=== PATIENT | male | born 1940 | race Caucasian/White ===

== ENCOUNTER 2019-10-05 10:25 | Emergency (ER) | payer BC, OTHER ==
[~2019-10-05] VITALS: Ht 182.9 cm; Wt 78.0 kg
[2019-10-05] MEDS ORDERED: DILTIAZEM HCL 5MG/ML 10ML VIAL IV ONE ×2 (11:05→19:24)
[2019-10-05] MEDS ORDERED: ASPIRIN 81MG TABLET PO ONE (11:15)
[2019-10-05] MEDS ORDERED: DILTIAZEM HCL 60MG TABLET PO ONE ×2 (11:15→21:30)
[2019-10-05] MEDS ORDERED: DILTIAZEM HCL 5MG/ML 5ML VIAL IV ONE ×3 (11:15→21:30)
[2019-10-05 11:17] LABS: BASOPHILS % 1.5 % (0.0-2.0); EOSINOPHILS % 4.5 % (0.0-5.0); HEMATOCRIT. 42.1 % (42.0-52.0); HEMOGLOBIN. 14.2 g/dL (14.0-18.0); LYMPHOCYTES % 27.1 % (20.0-50.0); MEAN CORPUSCULAR HEMOGLOBIN 30.8 pg (28.0-32.0); MEAN CORPUSCULAR VOLUME 91.3 fL (80.0-94.0); MEAN PLATELET VOLUME 8.4 fl (7.4-10.4); MONOCYTES % 11.2 % (2.0-8.0); NEUTROPHILS % 55.7 % (40.0-76.0); PLATELET 210 x1000/uL (130-400); RED BLOOD CELL COUNT 4.62 mill/uL (4.7-6.1); RED CELL DISTRIBUTION WIDTH 13.2 % (11.6-14.6)
[2019-10-05 11:26] LABS: CHLORIDE 105 mEq/L (98-107)
[2019-10-05 11:36] LABS: PARTIAL THROMBOPLASTIN TIME 28.6 sec (23.4-31.0); PROTHROMBIN TIME 10.5 sec (9.6-11.0)
[2019-10-05] MEDS ORDERED: NITROGLYCERIN OINT 1GM/INCH UDPKT TD ONE (13:00)
[2019-10-05] MEDS ORDERED: FUROSEMIDE 40MG/4ML VIAL IV ONE (13:00)
[2019-10-05] MEDS ORDERED: DILTIAZEM HCL 5MG/ML 10ML VIAL IV NR (19:30)
[2019-10-05 22:07] VITALS: BP 119/59
== END 2019-10-05 22:37 | disposition short-term general hospital (02) ==
LOC: ER 10:38
DX: I50.9 Heart failure, unspecified (principal); I44.5 Left posterior fascicular block; E11.9 Type 2 diabetes mellitus without complications
CPT/HCPCS: 36415; 71045; 80053; 82962; 83735; 83880; 84484; 85025; 85610; 85730; 93005; 96374; 96375; 96376; 99285; J1940; J3490